=== PATIENT | male | born 1965 | race Hispanic/Latino ===

== ENCOUNTER 2023-01-03 14:21 | Inpatient (IN) | payer SELFPAY ==
[2023-01-03 14:54] LABS: #Lymphocytes 1.5 thou/uL (1.20-3.40); #Monocytes 0.6 thou/uL (0.11-0.59); #Neutrophils 7.7 thou/uL (1.40-6.50); %Basophils 0.1 % (0.0-1.0); %Eosinophils 0.3 % (0.0-10.0); %Lymphocytes 15.1 % (21.0-51.0); %Monocytes 5.8 % (0.0-10.0); %Neutrophils 78.8 % (42.0-75.0); Hemoglobin 7.4 g/dL (14.0-18.0); Mean Corpuscular HGB CONC 33.5 g/dL (32.0-36.0); Mean Corpuscular Hemoglobin 29.8 pg (27.0-31.0); Mean Corpuscular Volume 88.8 fl (78.0-98.0); Mean Platelet Volume 6.6 fL (7.4-10.4); Platelet Count 379 10x3/uL (130-400); RBC Distribution Width 13.8 % (11.5-14.5); Red Blood Cell (RBC) Count 2.47 mill/uL (4.70-6.10); White Blood Cell (WBC) Count 9.7 10x3/uL (4.8-10.8)
[2023-01-03 15:14] LABS: ALT (SGPT) 7 U/L (8-55); AST (SGOT) 12 U/L (5-34); Albumin 3.1 g/dL (3.5-5.0); Alkaline Phosphatase 75 U/L (40-110); Anion Gap 14 mmol/L (10-20); BUN (Urea Nitrogen) 67 mg/dL (8.4-25.7); Bilirubin, Total 0.2 mg/dL (0.2-1.2); Calc. Creatinine Clearance 0 mL/min (70-130); Calcium 9.1 mg/dL (7.8-10.44); Carbon Dioxide 23 mmol/L (22-29); Chloride 101 mmol/L (98-107); Estimated GFR 34; Globulin 5.3 g/dL (2.4-3.5); Glucose 147 mg/dL (70-105); Potassium 4.6 mmol/L (3.5-5.1); Protein, Total 8.4 g/dL (6.0-8.3); Sodium 133 mmol/L (136-145)
[2023-01-03 15:57] LABS: INR-International Normal Ratio 1.2; Prothrombin Time 15.3 sec (12.0-14.7)
[2023-01-03 15:58] LABS: PTT 32.3 sec (22.9-36.1)
[2023-01-03] MEDS ORDERED: Dextrose 5% in Water 1,000 ML IV PRN (18:47)
[2023-01-03] MEDS ORDERED: HYDROcodone/Acetaminophen 5/325 mg Tablet PO PRN (18:47)
[2023-01-03] MEDS ORDERED: HumaLOG 300 UNITS/3 ML VIAL SC PRN (18:47)
[2023-01-03] MEDS ORDERED: Dextrose 50% Abboject 50 ML SYRINGE SLOW IVP PRN (18:47)
[2023-01-03 18:53] LABS: Acetaminophen Less than 10.0 mcg/mL (10.0-30.0); Alcohol Less than 10 mg/dL (Less than 10); Salicylate Less than 8.0 mg/dL (15.0-30.0)
[2023-01-03 19:38] LABS: Hemoglobin 7.6 g/dL (14.0-18.0)
[2023-01-03] MEDS: Sodium Chloride 0.9% 1,000 ML IV SCH (20:50)
[2023-01-03 21:53] VITALS: BMI 21.8
[2023-01-03 22:05] LABS: Bacteria/HPF 2+ HPF (None Seen); Bilirubin Negative (Negative); Blood, Urine 2+ (Negative); CAUTI Indications for Culture Alt mental st,lethar; Clarity Clear (Clear); Glucose, Urine (Dipstick) Normal (Negative); Ketone, Urine Negative (Negative); Leukocyte 500 Leu/uL (Negative); Nitrite Negative (Negative); Protein, Urine (Dipstick) 30 mg/dL (Neg-Trace); RBC/HPF 0-3 HPF (0-3); Squamous Epithelial None Seen HPF (0-3); Urobilinogen Normal mg/dL (Less than 2); WBC/HPF Greater than 50 HPF (0-3); pH, Urine 6.5 (5.0-9.0)
[2023-01-03 22:06] LABS: Urine Culture Reflex Yes Yes
[2023-01-03] MEDS ORDERED: Ferrous Sulfate 325 MG TAB PO SCH (23:15)
[2023-01-03] MEDS ORDERED: cefTRIAXone\\ROCEPHIN 1 GM in Sodium Chloride 0.9% 100 ML IVPB SCH (23:30)
[2023-01-04 06:55] LABS: #Eosinphils 0.1 thou/uL (0.0-0.7); #Lymphocytes 1.9 thou/uL (1.20-3.40); #Monocytes 0.9 thou/uL (0.11-0.59); #Neutrophils 8.1 thou/uL (1.40-6.50); %Basophils 0.4 % (0.0-1.0); %Eosinophils 0.5 % (0.0-10.0); %Lymphocytes 17.2 % (21.0-51.0); %Monocytes 7.8 % (0.0-10.0); %Neutrophils 74.1 % (42.0-75.0); Hemoglobin 7.1 g/dL (14.0-18.0); Mean Corpuscular HGB CONC 31.2 g/dL (32.0-36.0); Mean Corpuscular Hemoglobin 28.2 pg (27.0-31.0); Mean Corpuscular Volume 90.5 fl (78.0-98.0); Mean Platelet Volume 6.6 fL (7.4-10.4); Platelet Count 421 10x3/uL (130-400); RBC Distribution Width 13.9 % (11.5-14.5); Red Blood Cell (RBC) Count 2.53 mill/uL (4.70-6.10); White Blood Cell (WBC) Count 10.9 10x3/uL (4.8-10.8)
[2023-01-04 07:01] LABS: Hemoglobin A1c 6.4 % (4.0-6.0)
[2023-01-04 07:19] LABS: ALT (SGPT) Less than 7 U/L (8-55); AST (SGOT) 8 U/L (5-34); Albumin 2.7 g/dL (3.5-5.0); Alkaline Phosphatase 65 U/L (40-110); Anion Gap 14 mmol/L (10-20); BUN (Urea Nitrogen) 56 mg/dL (8.4-25.7); Bilirubin, Total 0.3 mg/dL (0.2-1.2); Calc. Creatinine Clearance 37 mL/min (70-130); Calcium 8.5 mg/dL (7.8-10.44); Carbon Dioxide 20 mmol/L (22-29); Chloride 107 mmol/L (98-107); Estimated GFR 46; Globulin 4.7 g/dL (2.4-3.5); Glucose 97 mg/dL (70-105); Iron 24 ug/dL (65-175); Iron Binding Capacity, Total 114 mcg/dL (261-462); Potassium 4.2 mmol/L (3.5-5.1); Protein, Total 7.4 g/dL (6.0-8.3); Sodium 137 mmol/L (136-145)
[2023-01-04 07:38] LABS: Ferritin 789.19 ng/mL (22-322)
[2023-01-04] MEDS: Atorvastatin Calcium 40 MG TAB PO SCH (08:30)
[2023-01-04] MEDS: Fish Oil 1,000 MG CAP PO SCH (08:30)
[2023-01-04] MEDS: Sodium Chloride 0.9% 1,000 ML IV SCH ×3 (08:31→21:36)
[2023-01-04] MEDS ORDERED: Ferrous Sulfate 325 MG TAB PO SCH (09:00)
[2023-01-04 09:05] LABS: Creatinine, Urine 46.1 mg/dL (63-166)
[2023-01-04 10:04] LABS: Iron Binding Capacity, Total 101 mcg/dL (261-462)
[2023-01-04 10:05] LABS: Iron 22 ug/dL (65-175)
[2023-01-04] MEDS: Ferrous Sulfate 325 MG TAB PO SCH (16:57)
[2023-01-04] MEDS: Sodium Bicarbonate Tab 325 MG TAB PO SCH ×2 (16:57→21:37)
[2023-01-04] MEDS ORDERED: Nafcillin 2 GM in Sodium Chloride 0.9% 100 ML IVPB SCH (21:00)
[2023-01-04] MEDS: Oxacillin 2 GM in Sodium Chloride 0.9% 100 ML IVPB SCH (21:37)
[2023-01-04] MEDS: Acetaminophen 325 MG TAB PO PRN (23:53)
[2023-01-05] MEDS: Oxacillin 2 GM in Sodium Chloride 0.9% 100 ML IVPB SCH ×2 (00:44→05:59)
[2023-01-05] MEDS: Sodium Chloride 0.9% 1,000 ML IV SCH (06:00)
[2023-01-05 06:59] LABS: #Eosinphils 0.1 thou/uL (0.0-0.7); #Lymphocytes 2.3 thou/uL (1.20-3.40); #Monocytes 0.9 thou/uL (0.11-0.59); #Neutrophils 6.2 thou/uL (1.40-6.50); %Basophils 0.2 % (0.0-1.0); %Eosinophils 0.8 % (0.0-10.0); %Lymphocytes 24.3 % (21.0-51.0); %Monocytes 9.2 % (0.0-10.0); %Neutrophils 65.4 % (42.0-75.0); Mean Corpuscular HGB CONC 33.4 g/dL (32.0-36.0); Mean Corpuscular Hemoglobin 30.1 pg (27.0-31.0); Mean Corpuscular Volume 90.1 fl (78.0-98.0); Mean Platelet Volume 6.7 fL (7.4-10.4); Platelet Count 330 10x3/uL (130-400); RBC Distribution Width 13.5 % (11.5-14.5); Red Blood Cell (RBC) Count 2.67 mill/uL (4.70-6.10); White Blood Cell (WBC) Count 9.5 10x3/uL (4.8-10.8)
[2023-01-05 07:09] LABS: Anion Gap 11 mmol/L (10-20); BUN (Urea Nitrogen) 43 mg/dL (8.4-25.7); Calc. Creatinine Clearance 42 mL/min (70-130); Calcium 8.1 mg/dL (7.8-10.44); Carbon Dioxide 20 mmol/L (22-29); Chloride 109 mmol/L (98-107); Estimated GFR 53; Glucose 134 mg/dL (70-105); Potassium 3.8 mmol/L (3.5-5.1); Sodium 136 mmol/L (136-145)
[2023-01-05] MEDS: Sodium Bicarbonate Tab 325 MG TAB PO SCH ×3 (08:50→21:59)
[2023-01-05] MEDS: Atorvastatin Calcium 40 MG TAB PO SCH (08:50)
[2023-01-05] MEDS: Fish Oil 1,000 MG CAP PO SCH (08:50)
[2023-01-05] MEDS: Ferrous Sulfate 325 MG TAB PO SCH ×2 (08:51→16:43)
[2023-01-05] MEDS: Lactated Ringer's 1,000 ML IV SCH ×2 (08:52→16:02)
[2023-01-05] MEDS ORDERED: EPOETIN ALFA-EPBX (ESRD) 10,000 UNIT/ML VIAL SC SCH (12:00)
[2023-01-05] MEDS: CEFAZOLIN 1 GM in Sodium Chloride 0.9% 100 ML IVPB SCH ×2 (14:23→22:00)
[2023-01-05] MEDS ORDERED: EPOETIN ALFA-EPBX (ESRD) 2,000 UNIT/ML VIAL SC SCH (17:00)
[2023-01-05] MEDS ORDERED: EPOETIN ALFA-EPBX (ESRD) 3,000 UNIT/ML VIAL SC SCH (17:00)
[2023-01-06] MEDS: Lactated Ringer's 1,000 ML IV SCH ×3 (00:16→14:17)
[2023-01-06] MEDS: HumaLOG 300 UNITS/3 ML VIAL SC PRN (05:15)
[2023-01-06] MEDS: CEFAZOLIN 1 GM in Sodium Chloride 0.9% 100 ML IVPB SCH ×3 (05:15→22:15)
[2023-01-06 06:58] LABS: #Eosinphils 0.1 thou/uL (0.0-0.7); #Lymphocytes 2.3 thou/uL (1.20-3.40); #Monocytes 0.8 thou/uL (0.11-0.59); #Neutrophils 5.8 thou/uL (1.40-6.50); %Basophils 0.3 % (0.0-1.0); %Eosinophils 0.8 % (0.0-10.0); %Lymphocytes 25.3 % (21.0-51.0); %Monocytes 8.5 % (0.0-10.0); %Neutrophils 65.1 % (42.0-75.0); Mean Corpuscular Hemoglobin 30.6 pg (27.0-31.0); Mean Corpuscular Volume 90.1 fl (78.0-98.0); Mean Platelet Volume 6.8 fL (7.4-10.4); Platelet Count 339 10x3/uL (130-400); RBC Distribution Width 13.7 % (11.5-14.5); Red Blood Cell (RBC) Count 2.62 mill/uL (4.70-6.10); White Blood Cell (WBC) Count 8.9 10x3/uL (4.8-10.8)
[2023-01-06 07:16] LABS: Anion Gap 11 mmol/L (10-20); BUN (Urea Nitrogen) 35 mg/dL (8.4-25.7); Calc. Creatinine Clearance 43 mL/min (70-130); Calcium 8.4 mg/dL (7.8-10.44); Carbon Dioxide 21 mmol/L (22-29); Chloride 110 mmol/L (98-107); Estimated GFR 56; Glucose 128 mg/dL (70-105); Potassium 3.7 mmol/L (3.5-5.1); Sodium 138 mmol/L (136-145)
[2023-01-06] MEDS: Acetaminophen 325 MG TAB PO PRN (08:48)
[2023-01-06] MEDS: Ferrous Sulfate 325 MG TAB PO SCH ×2 (08:48→16:56)
[2023-01-06] MEDS: Fish Oil 1,000 MG CAP PO SCH (08:48)
[2023-01-06] MEDS: Atorvastatin Calcium 40 MG TAB PO SCH (08:48)
[2023-01-06] MEDS: Sodium Bicarbonate Tab 325 MG TAB PO SCH ×3 (08:48→20:15)
[2023-01-06 11:10] LABS: Complement-C4 27.9 mg/dL (15-53)
[2023-01-07] MEDS: Lactated Ringer's 1,000 ML IV SCH ×2 (01:05→08:18)
[2023-01-07] MEDS: CEFAZOLIN 1 GM in Sodium Chloride 0.9% 100 ML IVPB SCH ×3 (04:57→21:24)
[2023-01-07 07:03] LABS: #Eosinphils 0.1 thou/uL (0.0-0.7); #Lymphocytes 2.3 thou/uL (1.20-3.40); #Monocytes 0.7 thou/uL (0.11-0.59); #Neutrophils 6.4 thou/uL (1.40-6.50); %Basophils 0.3 % (0.0-1.0); %Eosinophils 0.6 % (0.0-10.0); %Monocytes 7.5 % (0.0-10.0); %Neutrophils 67.6 % (42.0-75.0); Hemoglobin 7.5 g/dL (14.0-18.0); Mean Corpuscular HGB CONC 32.8 g/dL (32.0-36.0); Mean Corpuscular Hemoglobin 29.8 pg (27.0-31.0); Mean Corpuscular Volume 90.7 fl (78.0-98.0); Mean Platelet Volume 6.8 fL (7.4-10.4); Platelet Count 316 10x3/uL (130-400); RBC Distribution Width 13.4 % (11.5-14.5); Red Blood Cell (RBC) Count 2.51 mill/uL (4.70-6.10); White Blood Cell (WBC) Count 9.5 10x3/uL (4.8-10.8)
[2023-01-07 07:28] LABS: ALT (SGPT) Less than 7 U/L (8-55); AST (SGOT) 11 U/L (5-34); Albumin 2.2 g/dL (3.5-5.0); Alkaline Phosphatase 62 U/L (40-110); Anion Gap 10 mmol/L (10-20); BUN (Urea Nitrogen) 31 mg/dL (8.4-25.7); Bilirubin, Total Less than 0.2 mg/dL (0.2-1.2); Calc. Creatinine Clearance 45 mL/min (70-130); Calcium 8.3 mg/dL (7.8-10.44); Carbon Dioxide 24 mmol/L (22-29); Chloride 108 mmol/L (98-107); Estimated GFR 58; Globulin 3.9 g/dL (2.4-3.5); Glucose 121 mg/dL (70-105); Potassium 4.1 mmol/L (3.5-5.1); Protein, Total 6.1 g/dL (6.0-8.3); Sodium 138 mmol/L (136-145)
[2023-01-07] MEDS: Atorvastatin Calcium 40 MG TAB PO SCH (08:18)
[2023-01-07] MEDS: Sodium Bicarbonate Tab 325 MG TAB PO SCH ×3 (08:18→20:24)
[2023-01-07] MEDS: Ferrous Sulfate 325 MG TAB PO SCH ×2 (08:19→16:09)
[2023-01-07] MEDS: Fish Oil 1,000 MG CAP PO SCH (08:19)
[2023-01-07] MEDS ORDERED: Empagliflozin 10 MG TAB PO SCH (09:15)
[2023-01-07 16:37] LABS: Kappa Lambda Light Chain Ratio 1.75 (0.26-1.65); Kappa Light Chains 154.3 mg/L (3.3-19.4)
[2023-01-08] MEDS: CEFAZOLIN 1 GM in Sodium Chloride 0.9% 100 ML IVPB SCH ×3 (05:48→21:15)
[2023-01-08 07:45] LABS: Hemoglobin 8.1 g/dL (14.0-18.0); Mean Corpuscular Hemoglobin 29.4 pg (27.0-31.0); Mean Corpuscular Volume 91.5 fl (78.0-98.0); Red Blood Cell (RBC) Count 2.75 mill/uL (4.70-6.10)
[2023-01-08 07:46] LABS: #Lymphocytes 1.7 thou/uL (1.20-3.40); #Monocytes 0.7 thou/uL (0.11-0.59); #Neutrophils 7.5 thou/uL (1.40-6.50); %Basophils 0.3 % (0.0-1.0); %Eosinophils 0.4 % (0.0-10.0); %Lymphocytes 17.1 % (21.0-51.0); %Monocytes 6.8 % (0.0-10.0); %Neutrophils 75.4 % (42.0-75.0); Mean Corpuscular HGB CONC 32.1 g/dL (32.0-36.0); Mean Platelet Volume 6.6 fL (7.4-10.4); Platelet Count 367 10x3/uL (130-400); RBC Distribution Width 13.5 % (11.5-14.5)
[2023-01-08 08:09] LABS: Anion Gap 11 mmol/L (10-20); BUN (Urea Nitrogen) 28 mg/dL (8.4-25.7); Calc. Creatinine Clearance 43 mL/min (70-130); Calcium 8.6 mg/dL (7.8-10.44); Carbon Dioxide 25 mmol/L (22-29); Chloride 106 mmol/L (98-107); Estimated GFR 56; Glucose 212 mg/dL (70-105); Potassium 4.3 mmol/L (3.5-5.1); Sodium 138 mmol/L (136-145)
[2023-01-08] MEDS: Ferrous Sulfate 325 MG TAB PO SCH ×2 (08:22→16:54)
[2023-01-08] MEDS: Fish Oil 1,000 MG CAP PO SCH (08:22)
[2023-01-08] MEDS: Sodium Bicarbonate Tab 325 MG TAB PO SCH ×3 (08:22→21:15)
[2023-01-08] MEDS: Atorvastatin Calcium 40 MG TAB PO SCH (08:22)
[2023-01-08] MEDS: Empagliflozin 10 MG TAB PO SCH (09:39)
[2023-01-09] MEDS: CEFAZOLIN 1 GM in Sodium Chloride 0.9% 100 ML IVPB SCH ×3 (05:58→20:44)
[2023-01-09 08:28] LABS: #Eosinphils 0.1 thou/uL (0.0-0.7); #Monocytes 0.8 thou/uL (0.11-0.59); #Neutrophils 6.5 thou/uL (1.40-6.50); %Basophils 0.4 % (0.0-1.0); %Eosinophils 0.7 % (0.0-10.0); %Lymphocytes 20.9 % (21.0-51.0); %Monocytes 8.6 % (0.0-10.0); %Neutrophils 69.4 % (42.0-75.0); Hemoglobin 7.5 g/dL (14.0-18.0); Mean Corpuscular HGB CONC 32.3 g/dL (32.0-36.0); Mean Corpuscular Hemoglobin 29.2 pg (27.0-31.0); Mean Corpuscular Volume 90.4 fl (78.0-98.0); Mean Platelet Volume 6.7 fL (7.4-10.4); Platelet Count 335 10x3/uL (130-400); RBC Distribution Width 13.4 % (11.5-14.5); Red Blood Cell (RBC) Count 2.58 mill/uL (4.70-6.10); White Blood Cell (WBC) Count 9.4 10x3/uL (4.8-10.8)
[2023-01-09] MEDS: Atorvastatin Calcium 40 MG TAB PO SCH (08:48)
[2023-01-09] MEDS: Fish Oil 1,000 MG CAP PO SCH (08:48)
[2023-01-09] MEDS: Sodium Bicarbonate Tab 325 MG TAB PO SCH ×3 (08:49→20:44)
[2023-01-09] MEDS: Ferrous Sulfate 325 MG TAB PO SCH ×3 (08:49→18:31)
[2023-01-09] MEDS: Empagliflozin 10 MG TAB PO SCH (08:49)
[2023-01-09 08:50] LABS: Anion Gap 10 mmol/L (10-20); BUN (Urea Nitrogen) 27 mg/dL (8.4-25.7); Calc. Creatinine Clearance 45 mL/min (70-130); Calcium 8.6 mg/dL (7.8-10.44); Carbon Dioxide 26 mmol/L (22-29); Chloride 105 mmol/L (98-107); Estimated GFR 58; Glucose 130 mg/dL (70-105); Sodium 137 mmol/L (136-145)
[2023-01-10] MEDS: CEFAZOLIN 1 GM in Sodium Chloride 0.9% 100 ML IVPB SCH ×2 (05:58→13:37)
[2023-01-10 07:14] LABS: #Eosinphils 0.1 thou/uL (0.0-0.7); #Lymphocytes 1.8 thou/uL (1.20-3.40); #Monocytes 0.7 thou/uL (0.11-0.59); #Neutrophils 5.4 thou/uL (1.40-6.50); %Basophils 0.5 % (0.0-1.0); %Eosinophils 0.7 % (0.0-10.0); %Lymphocytes 22.7 % (21.0-51.0); Hemoglobin 7.4 g/dL (14.0-18.0); Mean Corpuscular HGB CONC 31.7 g/dL (32.0-36.0); Mean Corpuscular Hemoglobin 28.8 pg (27.0-31.0); Mean Corpuscular Volume 91.1 fl (78.0-98.0); Mean Platelet Volume 6.7 fL (7.4-10.4); Platelet Count 369 10x3/uL (130-400); RBC Distribution Width 13.5 % (11.5-14.5); Red Blood Cell (RBC) Count 2.58 mill/uL (4.70-6.10); White Blood Cell (WBC) Count 8.1 10x3/uL (4.8-10.8)
[2023-01-10 07:31] LABS: Anion Gap 13 mmol/L (10-20); BUN (Urea Nitrogen) 28 mg/dL (8.4-25.7); Calc. Creatinine Clearance 43 mL/min (70-130); Calcium 8.6 mg/dL (7.8-10.44); Carbon Dioxide 26 mmol/L (22-29); Chloride 104 mmol/L (98-107); Estimated GFR 56; Glucose 143 mg/dL (70-105); Potassium 4.1 mmol/L (3.5-5.1); Sodium 139 mmol/L (136-145)
[2023-01-10] MEDS: Ferrous Sulfate 325 MG TAB PO SCH ×3 (08:58→16:05)
[2023-01-10] MEDS: Atorvastatin Calcium 40 MG TAB PO SCH (08:59)
[2023-01-10] MEDS: Sodium Bicarbonate Tab 325 MG TAB PO SCH ×2 (08:59→16:05)
[2023-01-10] MEDS: Fish Oil 1,000 MG CAP PO SCH (08:59)
[2023-01-10] MEDS ORDERED: Empagliflozin 25 MG TAB PO SCH (09:00)
[2023-01-10] MEDS ORDERED: Amlodipine 5 MG TAB PO SCH (09:00)
[2023-01-10] MEDS: HumaLOG 300 UNITS/3 ML VIAL SC PRN (11:44)
[2023-01-10] MEDS ORDERED: EPOETIN ALFA-EPBX (ESRD) 10,000 UNIT/ML VIAL SC SCH (12:15)
[2023-01-10 16:16] VITALS: BP 146/76; TEMP 97.9
[2023-01-12 09:19] LABS: A/G Ratio 0.5 (0.7-1.7); Albumin 1.9 g/dL (2.9-4.4); Alpha 1 0.4 g/dL (0.0-0.4); Beta 0.8 g/dL (0.7-1.3); Gamma 1.9 g/dL (0.4-1.8); Globulin, Total 4.1 g/dL (2.2-3.9); M-Spike Not Observed g/dL (Not Observed)
== END 2023-01-10 17:21 | disposition home or self-care (01) | DRG 871 ==
LOC: ERS 14:21 → T4-A 18:23 → OBSVTOIN 01-04 17:07
PROVIDERS: ADMIT Family Medicine; ATTEND Hospitalist
PROC: 30233N1 Transfusion of Nonautologous Red Blood Cells into Peripheral Vein, Percutaneous Approach (ICD-10-PCS; principal; 2023-01-04)
PROC: 3E03329 Introduction of Other Anti-infective into Peripheral Vein, Percutaneous Approach (ICD-10-PCS; 2023-01-04)
PROC: 02HV33Z Insertion of Infusion Device into Superior Vena Cava, Percutaneous Approach (ICD-10-PCS; 2023-01-09)
PROC: B548ZZA Ultrasonography of Superior Vena Cava, Guidance (ICD-10-PCS; 2023-01-09)
DX: A41.02 Sepsis due to Methicillin resistant Staphylococcus aureus (principal); G06.2 Extradural and subdural abscess, unspecified; E87.20 Acidosis, unspecified; M46.26 Osteomyelitis of vertebra, lumbar region; N17.9 Acute kidney failure, unspecified; M48.061 Spinal stenosis, lumbar region without neurogenic claudication; M46.46 Discitis, unspecified, lumbar region; E11.69 Type 2 diabetes mellitus with other specified complication; G89.29 Other chronic pain; B95.61 Methicillin susceptible Staphylococcus aureus infection as the cause of diseases classified elsewhere; E11.22 Type 2 diabetes mellitus with diabetic chronic kidney disease; I12.9 Hypertensive chronic kidney disease with stage 1 through stage 4 chronic kidney disease, or unspecified chronic kidney disease; D63.1 Anemia in chronic kidney disease; M60.88 Other myositis, other site; Z79.899 Other long term (current) drug therapy; Z79.84 Long term (current) use of oral hypoglycemic drugs; Z86.16 Personal history of COVID-19
CPT/HCPCS: 36415; 36416; 36430; 36569; 71045; 72148; 72195; 76770; 80048; 80053; 80307; 81001; 82274; 82550; 82570; 82607; 82728; 83036; 83540; 83550; 83605; 83883; 83935; 84155; 84156; 84165; 84166; 84300; 84443; 84484; 84540; 85025; 85046; 85610; 85652; 85730; 86140; 86160; 86850; 86900; 86901; 87040; 87077; 87086; 87149; 87186; 93005; 93306; 94760; 96360; 96361; 96374; C1751; G0378; J0690; J0696; J1815; J2700; J3490; J7050; J7120; P9016; Q5105

== ENCOUNTER 2025-08-18 19:31 | Inpatient (IN) | payer OTHER ==
[~2025-08-18 19:31] MED LIST: Iopamidol-370 76% 500 ML MDV (1 ML CHARGE) ONE
[2025-08-18 22:10] LABS: #Basophils 0.06 10x3/uL (0.0-0.2); #Eosinophils 0.04 10x3/uL (0.0-0.7); #Monocytes 1.31 10x3/uL (0.11-0.59); #Neutrophils 16.60 10x3/uL (1.40-6.50); %Basophils 0.3 % (0.0-1.0); %Eosinophils 0.2 % (0.0-10.0); %Lymphocytes 10.2 % (21.0-51.0); %Monocytes 6.5 % (0.0-10.0); %Neutrophils 82.3 % (42.0-75.0); Hematocrit 30.9 % (42.0-52.0); Hemoglobin 9.5 g/dL (14.0-18.0); Mean Corpuscular Hemoglobin 30.1 pg (27.0-31.0); Mean Corpuscular Volume 97.8 fL (78.0-98.0); Platelet Count 365 10x3/uL (130-400); Red Blood Cell (RBC) Count 3.16 mill/uL (4.70-6.10); White Blood Cell (WBC) Count 20.17 10x3/uL (4.8-10.8)
[2025-08-18 22:24] LABS: INR-International Normal Ratio 1.2; Prothrombin Time 15.3 sec (12.0-14.7)
[2025-08-18 22:25] LABS: PTT 37.2 sec (22.9-36.1)
[2025-08-18 22:34] LABS: ALT (SGPT) 15 U/L (Less than 45); AST (SGOT) 28 U/L (11-34); Albumin 3.1 g/dL (3.1-4.5); Alkaline Phosphatase 102 U/L (40-110); Anion Gap 19 mmol/L (10-20); BUN (Urea Nitrogen) 58 mg/dL (8.4-25.7); Bilirubin, Total 0.3 mg/dL (0.3-1.2); Calc. Creatinine Clearance 0 mL/min (70-130); Calcium 9.3 mg/dL (7.8-10.44); Carbon Dioxide 23 mmol/L (22-29); Chloride 94 mmol/L (98-107); Globulin 6.0 g/dL (2.4-3.5); Glucose 160 mg/dL (70-105); Lipase 60 U/L (8-78); Potassium 5.7 mmol/L (3.5-5.1); Sodium 130 mmol/L (136-145)
[2025-08-18] MEDS ORDERED: Vancomycin 1 GM/200 ML (FROZEN) BAG ONE (22:35)
[2025-08-18] MEDS ORDERED: Acetaminophen 500 MG TAB ONE (23:51)
[2025-08-18] MEDS ORDERED: CALCIUM GLUC 1 GM/NS 50 ML IV Bag ONE (23:51)
[2025-08-19] MEDS ORDERED: Ondansetron PF 4 MG/2 ML Vial IVP PRN (02:10)
[2025-08-19] MEDS ORDERED: Calcium Carbonate 500 MG ChewTAB PO PRN (02:10)
[2025-08-19] MEDS ORDERED: Senokot S 8.6-50 MG TAB PO PRN (02:10)
[2025-08-19] MEDS ORDERED: Acetaminophen 325 MG TAB PO PRN (02:10)
[2025-08-19] MEDS ORDERED: Glucagon 1 MG/ML KIT IM PRN (02:14)
[2025-08-19] MEDS ORDERED: Dextrose 50% Abboject 50 ML SYRINGE SLOW IVP PRN (02:14)
[2025-08-19 08:04] VITALS: BMI 39.4
[2025-08-19 08:45] LABS: #Basophils 0.05 10x3/uL (0.0-0.2); #Eosinophils 0.10 10x3/uL (0.0-0.7); #Monocytes 1.30 10x3/uL (0.11-0.59); #Neutrophils 13.07 10x3/uL (1.40-6.50); %Basophils 0.3 % (0.0-1.0); %Eosinophils 0.6 % (0.0-10.0); %Lymphocytes 12.3 % (21.0-51.0); %Monocytes 7.8 % (0.0-10.0); %Neutrophils 78.2 % (42.0-75.0); Hematocrit 28.0 % (42.0-52.0); Hemoglobin 8.5 g/dL (14.0-18.0); Mean Corpuscular Hemoglobin 29.9 pg (27.0-31.0); Mean Corpuscular Volume 98.6 fL (78.0-98.0); Platelet Count 348 10x3/uL (130-400); Red Blood Cell (RBC) Count 2.84 mill/uL (4.70-6.10); White Blood Cell (WBC) Count 16.71 10x3/uL (4.8-10.8)
[2025-08-19] MEDS ORDERED: Non-Formulary Item 1 EACH (Labetalol Hcl [Labetalol Hcl] 200 MG Tablet) PO SCH (09:00)
[2025-08-19] MEDS ORDERED: NIFEdipine XL 60 MG ER.TAB PO SCH (09:00)
[2025-08-19] MEDS ORDERED: Isosorbide Mononitrate 30 MG ER.TAB.S PO SCH (09:00)
[2025-08-19 09:10] LABS: Vancomycin, Trough 14.7 ug/mL
[2025-08-19 09:11] LABS: ALT (SGPT) 13 U/L (Less than 45); AST (SGOT) 31 U/L (11-34); Albumin 2.5 g/dL (3.1-4.5); Alkaline Phosphatase 86 U/L (40-110); Anion Gap 17 mmol/L (10-20); BUN (Urea Nitrogen) 63 mg/dL (8.4-25.7); Bilirubin, Total 0.3 mg/dL (0.3-1.2); Calc. Creatinine Clearance 16 mL/min (70-130); Calcium 9.0 mg/dL (7.8-10.44); Carbon Dioxide 22 mmol/L (22-29); Chloride 98 mmol/L (98-107); Globulin 5.0 g/dL (2.4-3.5); Glucose 106 mg/dL (70-105); Potassium 5.5 mmol/L (3.5-5.1); Sodium 131 mmol/L (136-145)
[2025-08-19] MEDS ORDERED: Vancomycin Diaylsis Sliding Scale (Wt 71-99) FS SCH (09:15)
[2025-08-19] MEDS: Heparin 5,000 UNITS/ML VIAL SC SCH (09:21)
[2025-08-19 09:32] LABS: Hep B Surf Ag NONREACTIVE S/CO (NonReactive)
[2025-08-19 09:33] LABS: HBSAB Concentration Less than 8.00 mIU/mL; Hep B Core Total Ab NONREACTIVE (NonReactive); Hep B Core Total Index 0.15 S/CO (0-0.79); Hep B Surf Ag NONREACTIVE S/CO (NonReactive); Hep C IgG Ab NONREACTIVE S/CO (NonReactive); Hep C Index 0.06 S/CO (0-0.79)
[2025-08-19 09:36] VITALS: BMI 39.4
[2025-08-19] MEDS: Heparin 10,000 UNITS/ 10 ML VIAL FS PRN (10:35)
[2025-08-19] MEDS: Heparin 25,000 units/D5W 25,000 UNITS in Premix 1 BAG IV SCH (10:40)
[2025-08-19] MEDS: EPOETIN ALFA-EPBX (ESRD) 10,000 UNITS/ML VIAL SC SCH (15:38)
[2025-08-19] MEDS: Aspirin 81 mg Enteric Coated Tablet PO SCH (15:38)
[2025-08-19] MEDS: Sodium Bicarbonate Tab 325 MG TAB PO SCH (15:38)
[2025-08-19] MEDS: Vancomycin 1 GM in Premix 1 BAG IVPB SCH (16:01)
[2025-08-20 04:40] LABS: #Basophils 0.07 10x3/uL (0.0-0.2); #Eosinophils 0.11 10x3/uL (0.0-0.7); #Monocytes 1.35 10x3/uL (0.11-0.59); #Neutrophils 8.51 10x3/uL (1.40-6.50); %Basophils 0.6 % (0.0-1.0); %Eosinophils 0.9 % (0.0-10.0); %Lymphocytes 16.3 % (21.0-51.0); %Monocytes 11.2 % (0.0-10.0); %Neutrophils 70.4 % (42.0-75.0); Hematocrit 27.7 % (42.0-52.0); Hemoglobin 8.5 g/dL (14.0-18.0); Mean Corpuscular Hemoglobin 29.6 pg (27.0-31.0); Mean Corpuscular Volume 96.5 fL (78.0-98.0); Platelet Count 342 10x3/uL (130-400); Red Blood Cell (RBC) Count 2.87 mill/uL (4.70-6.10); White Blood Cell (WBC) Count 12.08 10x3/uL (4.8-10.8)
[2025-08-20 05:03] LABS: Anion Gap 16 mmol/L (10-20); BUN (Urea Nitrogen) 27 mg/dL (8.4-25.7); Calc. Creatinine Clearance 23 mL/min (70-130); Calcium 8.4 mg/dL (7.8-10.44); Carbon Dioxide 29 mmol/L (22-29); Chloride 95 mmol/L (98-107); Glucose 87 mg/dL (70-105); Iron 23 ug/dL (65-175); Iron Binding Capacity, Total 88 mcg/dL (261-462); Potassium 4.1 mmol/L (3.5-5.1); Sodium 136 mmol/L (136-145)
[2025-08-20] MEDS: Ferrous Sulfate 325 MG TAB PO SCH (08:34)
[2025-08-21 07:05] LABS: #Basophils 0.06 10x3/uL (0.0-0.2); #Eosinophils 0.14 10x3/uL (0.0-0.7); #Monocytes 1.42 10x3/uL (0.11-0.59); #Neutrophils 8.44 10x3/uL (1.40-6.50); %Basophils 0.5 % (0.0-1.0); %Eosinophils 1.1 % (0.0-10.0); %Lymphocytes 18.3 % (21.0-51.0); %Monocytes 11.5 % (0.0-10.0); %Neutrophils 68.0 % (42.0-75.0); Hematocrit 25.9 % (42.0-52.0); Hemoglobin 7.9 g/dL (14.0-18.0); Mean Corpuscular Hemoglobin 29.9 pg (27.0-31.0); Mean Corpuscular Volume 98.1 fL (78.0-98.0); Platelet Count 328 10x3/uL (130-400); Red Blood Cell (RBC) Count 2.64 mill/uL (4.70-6.10); White Blood Cell (WBC) Count 12.40 10x3/uL (4.8-10.8)
[2025-08-21 07:20] LABS: Vancomycin, Trough 24.4 ug/mL
[2025-08-21 07:28] LABS: Anion Gap 22 mmol/L (10-20); BUN (Urea Nitrogen) 45 mg/dL (8.4-25.7); Calc. Creatinine Clearance 10 mL/min (70-130); Calcium 8.6 mg/dL (7.8-10.44); Carbon Dioxide 27 mmol/L (22-29); Chloride 95 mmol/L (98-107); Glucose 93 mg/dL (70-105); Potassium 4.6 mmol/L (3.5-5.1); Sodium 139 mmol/L (136-145)
[2025-08-21 19:32] VITALS: TEMP 98.4
[2025-08-21 23:55] VITALS: BP 126/60
== END 2025-08-22 01:47 | disposition short-term general hospital (02) | DRG 637 ==
LOC: ERS 19:31 → ERHOLD 08-19 02:01 → OBS 08-19 06:30
PROVIDERS: ADMIT Internal Medicine; ATTEND Family Medicine
PROC: 3E03329 Introduction of Other Anti-infective into Peripheral Vein, Percutaneous Approach (ICD-10-PCS; principal; 2025-08-18)
PROC: 5A1D70Z Performance of Urinary Filtration, Intermittent, Less than 6 Hours Per Day (ICD-10-PCS; 2025-08-19)
DX: E11.69 Type 2 diabetes mellitus with other specified complication (principal); N18.6 End stage renal disease; M86.172 Other acute osteomyelitis, left ankle and foot; E87.1 Hypo-osmolality and hyponatremia; I13.2 Hypertensive heart and chronic kidney disease with heart failure and with stage 5 chronic kidney disease, or end stage renal disease; L02.612 Cutaneous abscess of left foot; E78.5 Hyperlipidemia, unspecified; F39 Unspecified mood [affective] disorder; E11.40 Type 2 diabetes mellitus with diabetic neuropathy, unspecified; E87.5 Hyperkalemia; I50.9 Heart failure, unspecified; E11.22 Type 2 diabetes mellitus with diabetic chronic kidney disease; D63.1 Anemia in chronic kidney disease; E11.51 Type 2 diabetes mellitus with diabetic peripheral angiopathy without gangrene; F32.A Depression, unspecified; Z79.4 Long term (current) use of insulin; Z79.82 Long term (current) use of aspirin; Z99.2 Dependence on renal dialysis
CPT/HCPCS: 36415; 36416; 71045; 80048; 80053; 80202; 82728; 83540; 83550; 83605; 83690; 84145; 85025; 85610; 85730; 86141; 86704; 86706; 86803; 87040; 87070; 87077; 87149; 87186; 87205; 87340; 90935; 93005; 93923; 96365; 96366; 96368; 97139; G0257; J0613; J1644; J2543; J3373; Q5105; Q9967